=== PATIENT | male | born 1980 | race Caucasian/White ===

== ENCOUNTER 2021-07-25 15:26 | Emergency (ER) | payer OTHER ==
[2021-07-25 18:35] LABS: HEMOGLOBIN 15.8 gm/dl (14.0-17.5); RED BLOOD COUNT 5.09 M/UL (4.20-5.50); WHITE BLOOD COUNT 11.5 K/UL (4.5-11.0)
[2021-07-25 18:55] LABS: BORDETELLA PARAPERTUSSIS Not Detected (Not Detectd); BORDETELLA PERTUSSIS Not Detected (Not Detectd); CHLAMYDIA PNEUMONIAE Not Detected (Not Detectd); CORONAVIRUS HKU1 Not Detected (Not Detectd); CORONAVIRUS NL63 Not Detected (Not Detectd); CORONAVIRUS OC43 Not Detected (Not Detectd); CORONOAVIRUS 229E Not Detected (Not Detectd); HUMAN METAPNEUMOVIRUS Not Detected (Not Detectd); INFLUENZA A Not Detected (Not Detectd); INFLUENZA B Not Detected (Not Detectd); MYCOPLASMA PNEUMONIAE Not Detected (Not Detectd); PARAINFLUENZA VIRUS 1 Not Detected (Not Detectd); PARAINFLUENZA VIRUS 2 Not Detected (Not Detectd); PARAINFLUENZA VIRUS 3 Not Detected (Not Detectd); PARAINFLUENZA VIRUS 4 Not Detected (Not Detectd); RESPIRATORY SYNCYTIAL VIRUS Not Detected (Not Detectd)
[2021-07-25 19:03] LABS: BUN/CREATININE RATIO 12 (0-10)
[2021-07-25 20:54] LABS: HUMAN RHINOVIRUS/ENTEROVIRUS DETECTED (Not Detectd); SARS-CoV-2 NOT DETECTED (Not Detectd)
[2021-07-25] MEDS ORDERED: MEDROL4 MG PO (21:04)
[2021-07-25] MEDS ORDERED: PROVENTIL HFA6.7 GM INH (21:04)
[2021-07-25] MEDS ORDERED: BENZONATATE200 MG PO (21:04)
[2021-07-25] MEDS ORDERED: ZITHROMAX250 MG PO (21:04)
== END 2021-07-25 21:31 | disposition home or self-care (01) ==
LOC: ER1 15:26
PROVIDERS: Preventive Medicine Occupational Medicine
DX: B34.8 Other viral infections of unspecified site (principal); Z20.822 Contact with and (suspected) exposure to COVID-19
CPT/HCPCS: 71046; 80048; 81001; 85025; 85652; 86140; 87086; 87633; 93005; 94664; 96374; 99284; J0696

== ENCOUNTER 2021-12-21 17:05 | Emergency (ER) | payer OTHER ==
[~2021-12-21 17:05] MED LIST: BENZONATATE200 MG PO; MEDROL4 MG PO; PROVENTIL HFA6.7 GM INH; ZITHROMAX250 MG PO
[2021-12-21] MEDS ORDERED: DOXYCYCLINE HY100 M2 PO (19:54)
[2021-12-21] MEDS ORDERED: PROAIR HFA8.5 GM INH (19:54)
[2021-12-21] MEDS ORDERED: PREDNISONE 20 M20 MG PO (19:54)
== END 2021-12-21 20:31 | disposition home or self-care (01) ==
LOC: ER1 17:05
DX: R06.2 Wheezing (principal); R06.02 Shortness of breath; R05.9 Cough, unspecified; R00.0 Tachycardia, unspecified; F17.210 Nicotine dependence, cigarettes, uncomplicated; R09.89 Other specified symptoms and signs involving the circulatory and respiratory systems
CPT/HCPCS: 71046; 94664; 94760; 99285